=== PATIENT | male | born 1960 | race Caucasian/White ===

== ENCOUNTER 2022-08-05 02:57 | Inpatient (IN) | payer OTHER ==
[~2022-08-05] VITALS: Ht 162.6 cm; Wt 93.2 kg
[2022-08-05 05:24] VITALS: BP 114/80
[2022-08-05] MEDS ORDERED: MOTRIN IB200 MG PO (05:33)
--- NOTE | 2022-08-05 06:57 | NUR ---
SHIFT SUMMARY PATIENT ARRIVED TO PCU 08 VIA EMS TRANSPORT AT 0500. SLIDE TRANSFER COMPLETED. PATIENT ALERT AND ORIENTED X4. HAD NO COMPLAINTS OF PAIN OR SHORTNESS OF BREATH. SATING 99% ON ROOM AIR. PATIENT IN AFLUTTER IN 90'S TO 100'S. PATIENT ARRIVED ON CARDIZEM DRIP AT 5, IT WAS DISCONTINUED UPON ADMIT. WOUNDS NOTED ON BOTH LEGS AND L FOOT, PHOTOS ON CHART. 1+ EDEMA NOTED IN BLE. CALL LIGHT WITHIN REACH.
[2022-08-05 07:54] VITALS: BP 108/81
--- NOTE | 2022-08-05 08:37 | NUR ---
LIVER ULTRASOUND AND ECHO COMPLETED.
--- NOTE | 2022-08-05 09:18 | NUR ---
AM NOTE: PATIENT ALERT AND ORIENTED, ANSWERING QUESTIONS APPROPRIATELY. CONFUSED ON PLACE THINKING HE WAS TRANSFERRED TO [facility]. GROSS. CHRONIC N/T TO BLE/FEET. USES 4 WHEEL WALKER AT BASELINE. BEDREST WITH BEDSIDE COMMODE. PATIENT STATES HE WENT INTO THE ER DUE TO BEING "FROZEN COLD". STATES HE WAS WORRIED HE WAS HAVING A STROKE DUE TO WEAKNESS IN HIS RIGHT ARM/HAND. WEAKNESS NOTED IN ROM AND STRENGTH COMPARED TO LEFT ARM/HAND. BILATERAL EXTREMITY MOVEMENT AND STRENGTH IN LOWER EXTREMITIES. COMPLAINS OF ANTERIOR RIGHT SHOULDER PAIN FROM PREVIOUS INJURY. DENIES ALL OTHER PAINS. ON ROOM AIR, LUNGS SOUNDING CLEAR. NO COUGH OR SOB NOTED. EVEN, UNLABORED BREATHS. TELE SHOWING AFLUTTER WITH HR 80-100'S. DENIES CHEST PAIN/PRESSURE/PALPITATIONS. BP STABLE. PPP. EDEMA NOTED IN BLE/FEET AND MILD EDEMA TO BUE. DENIES ABDOMINAL PAIN/NAUSEA. USING URINAL TO VOID. URINE SOWMYA IN COLOR. SCROTUM AND BILATERAL GROINS RED/INFLAMMED AND FOUL SMELLING. PLAN FOR BED BATH THIS AM. NO TEETH PRESENT, DENIES HAVING DENTURES. BOWEL TONES PRESENT. 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 WOUND CONSULT IN PLACE. ECHO AND LIVER ULTRASOUND COMPLETED. EDUCATED SHEAR ASSEMBLER LIGHT AND SAFETY. PATIENT ABLE TO VERBALIZE FALL PREVENTION AND HOW TO USE CALL LIGHT BACK TO THIS RN.
[2022-08-05 11:11] VITALS: BP 108/88
--- NOTE | 2022-08-05 11:12 | NUR ---
SPIRITUAL CARE IN ROOM AT THIS TIME. PATIENT HR UP TO 130'S WHEN TALKING, BACK DOWN TO 90-100'S AT REST. BP STABLE. PATIENT REMINDED AND EDUCATED ON TURNING SELF IN BED AND PRESSURE ULCER PREVENTION.
--- NOTE | 2022-08-05 12:21 | NUR ---
DR. FLORES IN TO SEE PATIENT. THIS RN AT BEDSIDE. PLAN FOR PATIENT TO RECIEVE PO CARDIZEM SHORT ACTING 30 MG X1 NOW. ORDERS IN PLACE. WILL UPDATE DR. FLORES ON HEART RATE POST CARDIZEM ADMINISTRATION.
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
[2022-08-05 15:02] VITALS: BP 117/91
--- NOTE | 2022-08-05 17:07 | NUR ---
PALLIATIVE CARE RN AT BEDSIDE
--- NOTE | 2022-08-05 17:26 | NUR ---
Pt resting in bed upon arrival. Pt A&OX3. Engaged in therapeutic discussion regarding goals of care. Reviewed plan of care and discussed recommendations. Inquired if he is willing for work up if needed for stroke and heart. Pt wathcing television and mutes it. He states he does not have the chance to watch television much. He states dinner should be here soon. Re-directed Pt to conversation regarding plan of care. Pt reports he would be willing for further stroke work up in a couple days after his breathing improves. Pt states he has nothing wrong with his heart but is agreeable with further work up as long as we don't push drugs on him. Asked Pt to elaborate. Pt reports unwilling to take medications including heart medication even if recommended. Attempted to educate Pt on heart condition including current rate. Pt states "watch this" and closes his eyes for five minutes. He reports knowing meditation and helps his heart. Monitor shows no change in rate and remained at 135 bpm. Pt becomes agitated and states "this conversation is over, re-do your resume and I'll consider your services later". Pt appears to have no intention for compliance and is more interested in what's on television. Spoke with Dr Kemp and discussed case. Palliative Care will remain available
--- NOTE | 2022-08-05 18:08 | NUR ---
SHIFT SUMMARY: NO ACUTE CHANGES. SEE PREVIOUS NOTES. PATIENT RESTING IN BED, WATCHING TV. SEE PREVIOUS NOTE FROM PALLIATIVE CARE RN. PATIENT HR 90-130'S DEPENDING ON ACVITIY. REFUSING TO WORK WITH PT, REFUSING TO GET UP TO BSC WITH THIS RN FOR BOWEL MOVEMENTS AND USING BED RAPP INSTEAD. BM X1 THIS SHIFT. BP REMAINS STABLE. CONTINUES TO DENY ANY CARDIAC SYMPTOMS. COMPLAINS X1 THIS SHIFT WITH BLE PAIN/TIGHTNESS AND REQUESTED TYLENOL. ELEVATING LEGS IN BED. PLAN FOR ALTERATIONS EXPERT TO SEE PATIENT 08/06, NOT AVAILABLE THIS SHIFT. WOUNDS CLEANSED AND OPEN TO AIR. REMAINS ON ROOM AIR. CALL LIGHT IN REACH, AND ABLE TO MAKE NEEDS KNOWN. ECHO RESULTS STILL PENDING.
[2022-08-05 20:01] VITALS: BP 121/81
--- NOTE | 2022-08-05 22:28 | NUR ---
PHYSICIAN [facility] CONTACTED IMPLEMENTATION SERVICES ANALYST RESIDENT DR SANCHEZ TO NOTIFY HER THAT THE PATIENT'S HEART RATE IS IN THE 130'S AND HE IS SYMPTOMATIC WITH SOME SHORTNESS OF BREATH. THAT PATIENT IS REQUESTING LASIX BECAUSE HE FEELS THAT HE IS FLUID OVERLOADED, AND THAT HE HAD BEEN REFUSING ANY CARDIAC MEDICATIONS TODAY BECAUSE HE DOESN'T THINK ANYTHING IS WRONG WITH HIS HEART AND THAT HIS PROBLEM IS TOO MUCH FLUID AROUND HIS HEART. HOSPITALIST DR. ELKINS ON PHONE CALL WELL AND WILL BE ENTERING ORDERS.
[2022-08-05 22:44] VITALS: BP 128/104
[2022-08-05 23:28] LABS: Bun/Creatinine Ratio 16.1 (12.0-20.0); Calcium, Blood 8.4 mg/dL (8.5-10.1); Creatinine, Blood 1.12 mg/dL (0.60-1.20)
[2022-08-06] VITALS (7 sets, daily range): BP systolic 92–120; BP diastolic 75–104
[2022-08-06 04:19] LABS: BASOPHILS ABSOLUTE AUTO 0.07 K/mm3 (0.00-0.23); BASOPHILS PERCENT AUTO 1 % (0-2); EOSINOPHILS ABSOLUTE AUTO 0.07 K/mm3 (0.00-0.68); EOSINOPHILS PERCENT AUTO 1 % (0-6); Hematocrit 35.8 % (37.0-53.0); Hemoglobin 10.8 g/dL (13.5-17.5); IMMATURE GRAN ABSOLUTE AUTO 0.04 K/mm3 (0.00-0.10); IMMATURE GRAN PERCENT AUTO 1 % (0-1); LYMPHOCYTES ABSOLUTE AUTO 0.87 K/mm3 (0.84-5.20); LYMPHOCYTES PERCENT AUTO 10 % (21-46); MONOCYTES ABSOLUTE AUTO 0.47 K/mm3 (0.16-1.47); MONOCYTES PERCENT AUTO 5 % (4-13); Mean Corpuscular HGB 26.9 pg (26.0-34.0); Mean Corpuscular HGB Conc 30.2 g/dL (31.5-36.5); Mean Corpuscular Volume 89 fL (80-100); Mean Platelet Volume 10.7 fL (9.1-12.4); NEUTROPHILS ABSOLUTE AUTO 7.23 K/mm3 (1.96-9.15); NEUTROPHILS PERCENT AUTO 83 % (41-73); Platelet Count 250 K/mm3 (150-400); RDW Coefficient Variation 16.6 % (11.7-14.2); RDW Standard Deviation 54.5 fL (35.1-46.3); Red Blood Cell Count 4.02 M/mm3 (4.30-5.90); White Blood Cell Count 8.75 K/mm3 (4.00-11.30)
[2022-08-06 04:40] LABS: Bun/Creatinine Ratio 17.1 (12.0-20.0); Calcium, Blood 8.5 mg/dL (8.5-10.1); Creatinine, Blood 1.29 mg/dL (0.60-1.20); Potassium, Blood 4.3 mmol/L (3.5-5.5)
--- NOTE | 2022-08-06 06:26 | NUR ---
SHIFT SUMMARY PATIENT ALERT AND ORIENTED X4. WAS MEDICATED WITH LASIX, IV LOPRESSOR, AND PO METOPROLOL TARTRATE TO TREAT HEART RATE IN THE 130'S. PATIENT RESPONDED WELL TO TREATMENT AND HAS BEEN RATE CONTROLLED SINCE. PATIENT HAS NOT HAD MUCH URINE OUTPUT, HOWEVER POST VOID BLADDER SCAN SHOWED A LITTLE OVER 100 ML LEFT IN BLADDER. REFUSING TO USE BEDSIDE COMMODE OVERNIGHT, OPTING TO USE THE BEDPAN INSTEAD TO HAVE A BOWEL MOVEMENT. WILL CONTINUE TO MONITOR. CALL LIGHT WITHIN REACH.
--- NOTE | 2022-08-06 10:30 | NUR ---
AM NOTE: PT STATED HE WAS OVER STIMULATED THIS MORNING. AROUND 8:30 OR 9:00 PT STATED TO THIS RN AND MIK CERVANTES THAT HE WAS REFUSING CARE FROM FEMALE NURSES B/C HE WAS OVER STIMULATED. CHARGE NURSE NOTIFIED OF THIS. PT WAS GIVEN SPACE AND RE-APPROACHED AROUND 30MIN TO AN HR LATER AND STATED TO MIK CERVANTES THAT HE WAS OKAY IF CARE WAS PROVIDED BY HER AND I. ALL MEDS GIVEN THIS MORNING. PT PREFERS CURTAIN AND DOOR CLOSED. LUNG SOUNDS CLEAR THROUGHOUT. PT A&OX4. PT TELLING VARIOUS STORIES.NEEDING LOTS OF RE-DIRECTION AND REASSURANCE. OFTEN PT REFUSING CARE AND WORKING WITH CERTAIN STAFF. TELE SHOWING A FLUTTER HR 80'S-130'S. BP STABLE. BLE SWOLLEN. BRUISING SCATTERED THROUGHOUT. RASH ON ABD. SCAB ON LLE, APPLIED NON-STICK BANDAGE BEFORE PUTTING BLUE NON-SKID SOCKS ON. PT LYING IN BED WITH CALL LIGHT WITHIN REACH AND CURTAIN AND DOOR CLOSED.
--- NOTE | 2022-08-06 15:18 | NUR ---
PT TO MRI AT THIS TIME.
--- NOTE | 2022-08-06 16:51 | NUR ---
PT RESTING IN ROOM. CALM AND COOPERATIVE WITH CARE. HASN'T REFUSED CARE SINCE PREVIOUS NOTE THIS MORNING.
--- NOTE | 2022-08-06 17:56 | NUR ---
SHIFT SUMMARY: NO ACUTE CHANGES. SEE PREVIOUS NOTES. VITALS STABLE. A FLUTTER 80'S-130'S. PT IN A PLEASANT, TALKATIVE MOOD. EATING DINNER AND ENJOYING CONVERSATION WITH NURSE MIK CERVANTES AND MYSELF. PT DENIES CHEST PAIN/PRESSURE/SOB. PT DENIES PAIN & NAUSEA. CALL LIGHT WITHIN REACH.
--- NOTE | 2022-08-06 20:38 | NUR ---
ASSUMPTION OF CARE THIS RN ASSUMED CARE OF PATIENT AT 1900. REPORT TAKEN FROM MIK GUERRA. PATIENT IS CALM AND COOPERATIVE WITH CARE. AFLUTTER ON MONITOR WITH HR 100-120 AT THIS TIME. PO LOPRESSOR GIVEN PER EMAR. BP STABLE. AFEBRILE. ON RA WITH SPO2 >92%. ABLE TO REPOSITION SELF IN BED. CALLING APPROPRIATELY. ALERT AND ORIENTED FULLY BUT OCCASIONALLY STARTS CONVERSATIONS ABOUT RANDOM TOPICS THAT ARE NOT APPROPRIATE FOR CURRENT CONVERSATION AND APPEARS LABILE WITH MOOD AT TIMES. BED IN LOWEST POSITION AND CALL LIGHT WITHIN REACH.
[2022-08-07 00:12] VITALS: BP 108/94
[2022-08-07 03:25] VITALS: BP 106/82
--- NOTE | 2022-08-07 05:04 | NUR ---
SHIFT SUMMARY NO ACUTE CHANGES OVERNIGHT. PATIENT CONTINUES TO BE IN AFLUTTER WITH HR 100-120'S. DENIES CHEST PAIN/PRESSURE OR SOB. BP STABLE. AFEBRILE. SPO2 >92% ON RA. PATIENT IS ALERT AND ORIENTED FULLY. CONTINUES TO HAVE TANGENTIAL SPEECH BUT HAS BEEN COOPERATIVE WITH CARE DURING THIS SHIFT. PATIENT REPOSITIONING SELF IN BED INDEPENDENTLY WITH MINIMAL ASSISTANCE FROM STAFF. USING URINAL INDEPENDENTLY. CALLING APPROPRIATELY. BED IN LOWEST POSITION AND CALL LIGHT WITHIN REACH. THIS RN WILL CONTINUE TO MONITOR UNTIL SHIFT CHANGE AT 0700.
[2022-08-07 10:25] LABS: BASOPHILS ABSOLUTE AUTO 0.11 K/mm3 (0.00-0.23); BASOPHILS PERCENT AUTO 1 % (0-2); EOSINOPHILS ABSOLUTE AUTO 0.32 K/mm3 (0.00-0.68); EOSINOPHILS PERCENT AUTO 4 % (0-6); Hematocrit 34.3 % (37.0-53.0); Hemoglobin 10.3 g/dL (13.5-17.5); IMMATURE GRAN ABSOLUTE AUTO 0.02 K/mm3 (0.00-0.10); IMMATURE GRAN PERCENT AUTO 0 % (0-1); LYMPHOCYTES ABSOLUTE AUTO 1.55 K/mm3 (0.84-5.20); LYMPHOCYTES PERCENT AUTO 19 % (21-46); MONOCYTES ABSOLUTE AUTO 0.67 K/mm3 (0.16-1.47); MONOCYTES PERCENT AUTO 8 % (4-13); Mean Corpuscular HGB 26.4 pg (26.0-34.0); Mean Corpuscular Volume 88 fL (80-100); Mean Platelet Volume 10.3 fL (9.1-12.4); NEUTROPHILS ABSOLUTE AUTO 5.42 K/mm3 (1.96-9.15); NEUTROPHILS PERCENT AUTO 67 % (41-73); Platelet Count 223 K/mm3 (150-400); RDW Coefficient Variation 16.7 % (11.7-14.2); RDW Standard Deviation 53.3 fL (35.1-46.3); White Blood Cell Count 8.09 K/mm3 (4.00-11.30)
[2022-08-07 10:39] VITALS: BP 115/93
[2022-08-07 10:59] LABS: Bun/Creatinine Ratio 17.3 (12.0-20.0); Calcium, Blood 8.7 mg/dL (8.5-10.1); Creatinine, Blood 1.68 mg/dL (0.60-1.20); Potassium, Blood 4.1 mmol/L (3.5-5.5)
[2022-08-07 15:13] VITALS: BP 123/78
[2022-08-07] MEDS ORDERED: MASOPHEN325 M4 PO (16:25)
[2022-08-07] MEDS ORDERED: FURO40 PO (16:26)
[2022-08-07] MEDS ORDERED: METO50ER PO (16:27)
[2022-08-07] MEDS ORDERED: SPIR25 PO (16:28)
--- NOTE | 2022-08-07 16:28 | NUR ---
SHIFT SUMMARY ALERT AND ORIENTED. SBA WITH WALKER TO BATHROOM. LABILE MOOD AND CAN BE UNCOOPERATIVE AT TIMES AND REFUSE CARE. WORKED WITH PT/OT. AFLUTTER IN 120S THROUGHOUT DAY. METOPROLOL DOSE DUE AT [address] YBARRA. TOLERATING REGULAR DIET AND LIQUIDS. VOIDING WELL. BM THIS SHIFT. PLAN TO DISCHARGE TOMORROW 08/08/22 TO [facility] TO OBTAIN MEDICATIONS [facility]. MEDICAL TRANSPORT WILL BE ARRANGED. REPORT GIVEN TO CHARLIE DIETZ.
--- NOTE | 2022-08-07 18:39 | NUR ---
SHIFT SUMMARY THIS RN ASSUMED CARE @ APPROX 1615. PT A/O X4. APPEARED TO BE SLEEPING MAJORITY OF THIS EVENING. RESPIRATIONS EVEN AND UNLABORED. PT REMAINS IN A FLUTTER WITH A RATE IN THE 120'S. PT C/O PAIN IN HIS ANKLES AND WAS MEDICATED PER EMAR. PT PLEASANT AND COOPERATIVE WITH THIS RN WHEN HE IS AWAKE. WILL CONTINUE TO CARE FOR PT AND REPORT TO ONCOMING RN.
[2022-08-07 19:46] VITALS: BP 105/83
--- NOTE | 2022-08-07 21:00 | NUR ---
ASSUMPTION OF CARE THIS RN ASSUMED CARE OF PATIENT AT 1900. REPORT TAKEN FROM J LUIS GUERRA. PATIENT ALERT AND ORIENTED FULLY. NOTED TO HAVE TANGENTIAL SPEECH AND CONVERSES ABOUT TOPICS THAT AREN'T APPROPRIATE FOR CONVERSATION BUT IS CALM AND COOPERATIVE WITH CARE. BP STABLE. AFLUTTER ON MONITOR WITH HR 110-120'S. AFEBRILE. SPO2 >92% ON RA. DENIES CHEST PAIN/PRESSURE AND SOB. ABLE TO REPOSITION SELF IN BED INDEPENDENTLY. CALLING APPROPRIATELY FOR ASSISTANCE. BED IN LOWEST POSITION AND CALL LIGHT WITHIN REACH.
[2022-08-07 23:01] VITALS: BP 108/91
[2022-08-08 04:11] VITALS: BP 107/83
--- NOTE | 2022-08-08 04:45 | NUR ---
SHIFT SUMMARY NO ACUTE CHANGES OVERNIGHT. NEURO UNCHANGED. AFLUTTER ON MONITOR WITH HR 80-120'S; MAINTAINING MORE 110-120'S DURING THIS SHIFT. BP STABLE WITH SBP 100-110. AFEBRILE. SPO2 >92% ON RA. DENIES CHEST PAIN/PRESSURE AND SOB AT REST. AMBULATING WITH WALKER TO BS. PT STATING HE "WANTS TO WORK WITH THERAPY MORE TO GET STRONGER BEFORE GOING BACK TO THE STREETS" TO THIS RN. MOBILITY ENCOURAGED. ABLE TO REPOSITION SELF IN BED INDEPENDENTLY. USING URINAL INDEPENDENTLY. CALLING APPROPRIATELY. PATIENT AWAKE MOST OF THE NIGHT, STATES THAT HE "TAKES CAT NAPS AT NIGHT". PATIENT HAS BEEN COOPERATIVE WITH CARE DURING THIS SHIFT. BED IN LOWEST POSITION AND CALL LIGHT WITHIN REACH. THIS RN WILL CONTINUE TO MONITOR UNTIL SHIFT CHANGE AT 0700.
[2022-08-08 08:45] VITALS: BP 109/88
[2022-08-08 11:58] VITALS: BP 112/88
--- NOTE | 2022-08-08 14:58 | NUR ---
DISCHARGE NOTE: Pt was given written discharge instructions. IV was discontinued, cath was intact. Pt was assisted with getting dressed. Left via w/c with RN, all personal belongings were given to patient. Stable at time of discharge. [facility] and waited there with staff member for taxi ride arrainged through [place]. Taxi arrived at 1445 [facility] [address] [facility] then [place]. Stable at discharge.
== END 2022-08-08 13:30 | disposition home or self-care (01) | DRG 308 ==
LOC: PCU 02:57
PROVIDERS: Internal Medicine; ADMIT Internal Medicine
DX: I48.92 Unspecified atrial flutter (principal); I50.23 Acute on chronic systolic (congestive) heart failure; I69.351 Hemiplegia and hemiparesis following cerebral infarction affecting right dominant side; J81.1 Chronic pulmonary edema; I48.91 Unspecified atrial fibrillation; F91.9 Conduct disorder, unspecified; F20.9 Schizophrenia, unspecified; E87.6 Hypokalemia; J30.9 Allergic rhinitis, unspecified; F31.9 Bipolar disorder, unspecified; J44.9 Chronic obstructive pulmonary disease, unspecified; F22 Delusional disorders; I11.0 Hypertensive heart disease with heart failure; E66.01 Morbid (severe) obesity due to excess calories; R47.9 Unspecified speech disturbances; B35.6 Tinea cruris; G25.0 Essential tremor; K76.82 Hepatic encephalopathy; I87.8 Other specified disorders of veins; D64.9 Anemia, unspecified; E83.42 Hypomagnesemia; Z86.16 Personal history of COVID-19; I25.2 Old myocardial infarction; Z98.890 Other specified postprocedural states; Z88.8 Allergy status to other drugs, medicaments and biological substances; Z79.899 Other long term (current) drug therapy; Z87.01 Personal history of pneumonia (recurrent); Z86.79 Personal history of other diseases of the circulatory system; Z59.00 Homelessness unspecified
CPT/HCPCS: 36415; 70551; 76705; 80048; 82140; 83735; 83880; 85025; 93306; 94762; 96372; 96374; 96375; 96376; 97110; 97116; 97129; 97161; 97165; 97530; A9270; G0378; J1650; J1940; J2405

== ENCOUNTER 2022-08-13 17:36 | Inpatient (IN) | payer OTHER ==
[~2022-08-13] VITALS: Ht 167.6 cm; Wt 86.9 kg
[~2022-08-13 17:36] MED LIST: FURO40 PO; MASOPHEN325 M4 PO; METO50ER PO; MOTRIN IB200 MG PO; SPIR25 PO
[2022-08-13 18:08] LABS: BASOPHILS ABSOLUTE AUTO 0.08 K/mm3 (0.00-0.23); BASOPHILS PERCENT AUTO 1 % (0-2); EOSINOPHILS PERCENT AUTO 4 % (0-6); IMMATURE GRAN ABSOLUTE AUTO 0.02 K/mm3 (0.00-0.10); IMMATURE GRAN PERCENT AUTO 0 % (0-1); LYMPHOCYTES PERCENT AUTO 17 % (21-46); MONOCYTES ABSOLUTE AUTO 0.69 K/mm3 (0.16-1.47); MONOCYTES PERCENT AUTO 8 % (4-13); Mean Corpuscular HGB 26.6 pg (26.0-34.0); Mean Corpuscular HGB Conc 29.7 g/dL (31.5-36.5); Mean Corpuscular Volume 89 fL (80-100); Mean Platelet Volume 10.8 fL (9.1-12.4); NEUTROPHILS ABSOLUTE AUTO 6.01 K/mm3 (1.96-9.15); NEUTROPHILS PERCENT AUTO 70 % (41-73); NRBC ABSOLUTE 0.02 K/mm3 (0.00-0.02); NRBC Auto 0.2 /100 WBC (0.0-0.2); Platelet Count 254 K/mm3 (150-400); RDW Coefficient Variation 16.4 % (11.7-14.2); RDW Standard Deviation 53.4 fL (35.1-46.3); Red Blood Cell Count 4.14 M/mm3 (4.30-5.90)
[2022-08-13 18:15] LABS: Albumin/Globulin Ratio 0.7 (0.8-1.8); Bilirubin, Total 0.7 mg/dL (0.1-1.0); Calcium, Blood 8.8 mg/dL (8.5-10.1); Creatinine, Blood 1.22 mg/dL (0.60-1.20); Globulin, Blood 4.2 g/dL (2.2-4.0); Magnesium, Blood 2.1 mg/dL (1.6-2.4); Potassium, Blood 4.5 mmol/L (3.5-5.5); Total Protein, Blood 7.2 g/dL (6.4-8.2)
[2022-08-13] MEDS ORDERED: IBUP800 PO (18:16)
[2022-08-13 22:06] VITALS: BP 132/110
--- NOTE | 2022-08-14 00:13 | NUR ---
Contacted resident regarding high HR in ST 120-130's, this has been what patient has been running since coming to hospital. For now orders to just monitor and report any changes.
[2022-08-14 01:13] VITALS: BP 125/100
[2022-08-14 04:57] VITALS: BP 115/92
[2022-08-14 05:20] LABS: Albumin/Globulin Ratio 0.7 (0.8-1.8); Bun/Creatinine Ratio 17.9 (12.0-20.0); Calcium, Blood 8.7 mg/dL (8.5-10.1); Creatinine, Blood 1.34 mg/dL (0.60-1.20); Globulin, Blood 4.1 g/dL (2.2-4.0); Potassium, Blood 4.2 mmol/L (3.5-5.5); Total Protein, Blood 7.1 g/dL (6.4-8.2)
--- NOTE | 2022-08-14 05:41 | NUR ---
Assumed care of pt at 2200 as an ER admit for CHF exac. A/Ox4, talkative, with illogical thoughts and derailment of conversation. Maintains over 95% on RA, LS dim on top and coarse at bases. Nonproductive moist cough. Orthopnea, tachypnea and dyspnea noted. ST on tele 120-130's. Denies CP/pressure, VSS. 3+ pitting edema BL, 2+ BUE, and 1+ abdomen. Very good urine output. Will report to dayshift RN.
[2022-08-14 06:26] LABS: BASOPHILS ABSOLUTE AUTO 0.07 K/mm3 (0.00-0.23); BASOPHILS PERCENT AUTO 1 % (0-2); EOSINOPHILS PERCENT AUTO 3 % (0-6); Hemoglobin 10.6 g/dL (13.5-17.5); IMMATURE GRAN ABSOLUTE AUTO 0.02 K/mm3 (0.00-0.10); IMMATURE GRAN PERCENT AUTO 0 % (0-1); LYMPHOCYTES ABSOLUTE AUTO 1.43 K/mm3 (0.84-5.20); LYMPHOCYTES PERCENT AUTO 19 % (21-46); MONOCYTES ABSOLUTE AUTO 0.53 K/mm3 (0.16-1.47); MONOCYTES PERCENT AUTO 7 % (4-13); Mean Corpuscular HGB Conc 30.3 g/dL (31.5-36.5); Mean Corpuscular Volume 86 fL (80-100); Mean Platelet Volume 10.3 fL (9.1-12.4); NEUTROPHILS ABSOLUTE AUTO 5.46 K/mm3 (1.96-9.15); NEUTROPHILS PERCENT AUTO 71 % (41-73); Platelet Count 254 K/mm3 (150-400); RDW Standard Deviation 49.9 fL (35.1-46.3); Red Blood Cell Count 4.08 M/mm3 (4.30-5.90); White Blood Cell Count 7.71 K/mm3 (4.00-11.30)
[2022-08-14 07:31] VITALS: BP 133/110
--- NOTE | 2022-08-14 10:04 | NUR ---
CARE ASSUMPTION This RN assumed care at 0700. vital signs stable. spo2>95% on room air. Tele Sinus tach-Aflutter 120-130s. Patient is alert and oriented x4. Patient has delusional thoughts, patient stated "i am rebecca the archangel" when this RN asked how he got the bruises on his arms, and that he "protects himself". When this RN asked who he was protecting himself from patient answer was a vague response and then would start talking about something different. Patient is a one person stand by assist. patient uses call light appropriately. Patient is able to make needs known and perform ADL's. Patinet reports no shortness of breath. Lung sounds upper lobes bilaterally are clear and lower lobes bilaterally are dim. patient reports no chest pain/pressure. patient has +3 edema in lower extremites and upper extremities +2. patient has no issues voiding. abd soft nontender and active. Patient skin has bruisings throughout, scab throughout, and bilateral lower extremities are tight and edematrous. see shift assessment for further detials. MD Butts in to see patient this AM and made medical status with tele. Plan of care is up to date, call light within reach.
[2022-08-14 11:07] VITALS: BP 121/95
[2022-08-14 15:58] VITALS: BP 93/78
--- NOTE | 2022-08-14 16:00 | NUR ---
SHIFT SUMMARY/TRANSFER CARE This RN gave report to medical floor RN at approx 1525. Patient belongings gathered and patient left to medical floor in no distress with all belongings. No acute changes throughout the shift. Neuro remained intact. Plan of care remains up to date.
--- NOTE | 2022-08-14 16:39 | NUR ---
PCU TRANSFER Patient AOx4, pleasant and cooperative with cares. Handoff report recieved from Marlena GUERRA. Patient stand pivot from w/c to bed. BLE +2 pitting edema. Vitals stable. Will continue plan of care, awaiting discharge planning when medically stable.
[2022-08-14 19:40] VITALS: BP 99/86
[2022-08-15 05:13] LABS: Mean Corpuscular HGB 25.6 pg (26.0-34.0); Mean Corpuscular HGB Conc 29.4 g/dL (31.5-36.5); Mean Corpuscular Volume 87 fL (80-100); Mean Platelet Volume 10.4 fL (9.1-12.4); Platelet Count 247 K/mm3 (150-400); RDW Coefficient Variation 16.2 % (11.7-14.2); RDW Standard Deviation 51.1 fL (35.1-46.3); Red Blood Cell Count 3.91 M/mm3 (4.30-5.90)
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
[2022-08-15 05:56] LABS: Albumin, Blood 2.7 g/dL (3.4-5.0); Albumin/Globulin Ratio 0.7 (0.8-1.8); Bilirubin, Total 0.7 mg/dL (0.1-1.0); Bun/Creatinine Ratio 25.2 (12.0-20.0); Calcium, Blood 8.2 mg/dL (8.5-10.1); Creatinine, Blood 1.27 mg/dL (0.60-1.20); Globulin, Blood 3.7 g/dL (2.2-4.0); Potassium, Blood 3.7 mmol/L (3.5-5.5); Total Protein, Blood 6.4 g/dL (6.4-8.2)
--- NOTE | 2022-08-15 06:13 | NUR ---
PATIENT ABLE TO ANSWER ORIENTATION QUESTIONS, ALTHOUGH INTERNALLY STIMULATED. AUDITORY HALLUCINATIONS AND FLIGHT OF IDEAS THROUGHOUT THE NIGHT. WAS VERY FRUSTRATED WITH CARE AT TIME, DOES NOT LIKE SMART DEVICES/WATCHES. HYPOTENSIVE BUT OTHERWISE VSS. PATIENT REMAINED IN BED, U/O DOCUMENTED. NO OTHER ISSUES TO REPORT.
[2022-08-15 08:04] VITALS: BP 108/82
[2022-08-15 15:26] VITALS: BP 118/88
--- NOTE | 2022-08-15 16:01 | NUR ---
Pt remains alert throughout shift with delusional verbalization at times. Received phone call from Mettl HR remains 120s. AM Toprol was held due to SBP parameters. TO order from Dr. Butts to give po Toprol now. Pt denies cardiac symptoms. Will continue to monitor.
[2022-08-15 19:23] VITALS: BP 95/71
[2022-08-16] VITALS (7 sets, daily range): BP systolic 88–117; BP diastolic 67–97
[2022-08-16 05:18] LABS: Hematocrit 33.8 % (37.0-53.0); Hemoglobin 9.9 g/dL (13.5-17.5); Mean Corpuscular HGB 25.6 pg (26.0-34.0); Mean Corpuscular HGB Conc 29.3 g/dL (31.5-36.5); Mean Corpuscular Volume 88 fL (80-100); Mean Platelet Volume 10.2 fL (9.1-12.4); Platelet Count 231 K/mm3 (150-400); RDW Coefficient Variation 16.2 % (11.7-14.2); RDW Standard Deviation 51.2 fL (35.1-46.3); Red Blood Cell Count 3.86 M/mm3 (4.30-5.90); White Blood Cell Count 6.22 K/mm3 (4.00-11.30)
[2022-08-16 05:48] LABS: Albumin, Blood 2.7 g/dL (3.4-5.0); Albumin/Globulin Ratio 0.7 (0.8-1.8); Bilirubin, Total 0.6 mg/dL (0.1-1.0); Bun/Creatinine Ratio 27.5 (12.0-20.0); Calcium, Blood 8.1 mg/dL (8.5-10.1); Creatinine, Blood 1.2 mg/dL (0.60-1.20); Globulin, Blood 3.7 g/dL (2.2-4.0); Percent Saturation 5.3 % (20.0-50.0); Potassium, Blood 3.8 mmol/L (3.5-5.5); Total Protein, Blood 6.4 g/dL (6.4-8.2)
--- NOTE | 2022-08-16 06:24 | NUR ---
PATIENT IS ORIENTED X4, SOMEWHAT NOT COOPERATIVE WITH CARE AND WAS VERBALLY ABUSIVE WITH SATFF THIS SHIFT. TOOK TELE OF AND REFUSED CARE FOR 4 HOURS, AND THEN BECAME COMPLIANT ONCE MORE. WAS UPSET OVER DIET AND FLUID RESTRICTIONS AND STATED HE WOULD "SHIT ALL OVER SO HE COULD SEE US ACTUALLY WORK." PATIENT BECAME HYPOTENSIVE THIS MORNING, NO NEW ORDERS FROM PROVIDER. 10 BEAT RUN OF VTACK NOTED FROM TELE, PATIENT WAS ASYMPTOMATIC. NO OTHER ISSUES TO REPORT.
[2022-08-16 12:01] LABS: Stool Occult Blood Guaiac 1 Neg (Neg)
--- NOTE | 2022-08-16 17:12 | NUR ---
SHIFT SUMMARY PT A&OX4/DELUSIONS, CAN BE DIFFICULT/DOES APOLOGIZE, IMPROVED BEHAVIOR IN AFTERNOON. VSS/RA/TELE AFLUTTER 120s. PT AGREED TO TAKE DIG AND LOVENOX IN THE AFTERNOON, AFTER INITIAL DECLINATION THIS AM OF TOPROL/DIG/LOVENOX/ASA. KANDY PO, VOIDING/BM, STAND PIVOT TO BSC, DENIES PAIN. TODAY'S WEIGHT 86.9kg, DOWN FROM ADMIT WEIGHT OF 92.4kg. PT DID WELL WITH STRICT I's & O's ASKED FOR FOOD MORE THAN LIQUIDS. WILL REPORT TO ONCOMING NOC RN.
[2022-08-17 02:50] VITALS: BP 103/84
[2022-08-17 05:23] LABS: Albumin, Blood 2.8 g/dL (3.4-5.0); Anion Gap 2 mmol/L (6-16); Blood Urea Nitrogen 31 mg/dL (8-24); CO2, Blood 27 mmol/L (21-32); Calcium, Blood 8.4 mg/dL (8.5-10.1); Chloride, Blood 112 mmol/L (98-108); Creatinine, Blood 1.07 mg/dL (0.60-1.20); Glomerular Filtration Rate 78 (60-); Glucose, Blood 112 mg/dL (70-99); Magnesium, Blood 2.3 mg/dL (1.6-2.4); Phosphorus, Blood 4.1 mg/dL (2.5-4.9); Potassium, Blood 3.9 mmol/L (3.5-5.5); Sodium, Blood 141 mmol/L (136-145)
--- NOTE | 2022-08-17 05:32 | NUR ---
PATIENT SLEPT WELL THROUGH THE NIGHT, NO BEHAVIORAL ISSUES, COMPLIANT WITH MEDICATIONS AND CARE. TELE RUNNING AFLUTTER IN THE 70'S AFTER HS METOPROLOL. GOOD U/O AND WATER RESTRICTED TO 1500 THROUGHOUT THE NIGHT. NO PICKING AT SCABS NOTED AND BLE AND ABD EDEMA GETTING BETTER. WILL CONT TO MONITOR.
[2022-08-17 08:03] VITALS: BP 90/78
[2022-08-17 14:40] VITALS: BP 95/83
--- NOTE | 2022-08-17 19:18 | NUR ---
SHIFT SUMMARY: NO ACUTE EVENTS. PT PLEASANT AND COOPERATIVE ALL SHIFT. C/O PAIN IN FEET, MEDICATED WITH TYLENOL X 1 WITH SOME RELIEF. NO EVENTS ON TELEMETRY, A FLUTTER 90-110. BLE EDEMA 1+. ON ROOM AIR. USING URINAL INDEPENDENTLY. REFUSED SKIN ASSESSMENT. COMPLIANT WITH LOW SODIUM DIET AND FLUID RESTRICTION. TRANSFERRING TO [facility] WITH SBA.
[2022-08-17 20:23] VITALS: BP 111/91
[2022-08-18 04:48] VITALS: BP 94/70
--- NOTE | 2022-08-18 05:18 | NUR ---
NO ACUTE CHANGED THIS SHIFT. REMIANS OREINTED WITH DELUSIONS AND CALLS TO MAKE NEEDS KNOWN. BLE EDEMA RESOLVING, PATIENT IS NOT PICKING MUCH, AND ALL SCRATCH SANCHEZ SEEM TO HAVE SCABBED OVER. 15OO FLUID RESTRICTION MAINTAINED AND LOW SODIUM SNACK PROVIDED THROUGHOUT THE NIGHT. REFUSED COMPLETE SKIN CHECK, HE WOULD NOT ALLOW US TO CLEAN/CHECK HIS COCCYX OR [place] AREA. TELE A FLUTTER FROM 80'S-105. LUNGS CLEAR. WILL CONT TO MONITOR.
[2022-08-18 08:10] VITALS: BP 105/70
[2022-08-18 15:03] VITALS: BP 124/98
[2022-08-18 19:11] VITALS: BP 92/74
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
[2022-08-19 04:49] VITALS: BP 90/61
--- NOTE | 2022-08-19 06:11 | NUR ---
SHIFT SUMMARY NO AVUTE CHANGES NOTED, PT REMAINS A&O X2 TO 3, OCCASIONAL DELUSIONS/AGGRESSIVE COMMENTS NOTED, PT IS ON RA, VSS, TOLERATING PO INTAKE, VOIDING WNL, CALLS FOR ASSISTANCE PRN, CALL LIGHT IN REEACH, AWAKE WATCHING TV AT THIS TIME, WCTM & REPORT TO DAY RN
[2022-08-19 06:25] LABS: Albumin, Blood 3.1 g/dL (3.4-5.0); Anion Gap 2 mmol/L (6-16); Blood Urea Nitrogen 35 mg/dL (8-24); Bun/Creatinine Ratio 32.4 (12.0-20.0); CO2, Blood 26 mmol/L (21-32); Calcium, Blood 8.7 mg/dL (8.5-10.1); Chloride, Blood 109 mmol/L (98-108); Creatinine, Blood 1.08 mg/dL (0.60-1.20); Glomerular Filtration Rate 77 (60-); Glucose, Blood 119 mg/dL (70-99); Magnesium, Blood 2.5 mg/dL (1.6-2.4); Phosphorus, Blood 4.3 mg/dL (2.5-4.9); Potassium, Blood 4.7 mmol/L (3.5-5.5); Sodium, Blood 137 mmol/L (136-145)
[2022-08-19 08:14] VITALS: BP 94/80
[2022-08-19] MEDS ORDERED: FERSU300 PO (12:17)
[2022-08-19] MEDS ORDERED: JARDIANCE25 MG PO (12:17)
[2022-08-19] MEDS ORDERED: DIGOX250 MCG PO (12:17)
[2022-08-19] MEDS ORDERED: Lisinopril2.5 MG PO (12:18)
[2022-08-19] MEDS ORDERED: Seroquel Xr50 MG PO (12:18)
[2022-08-19] MEDS ORDERED: POTCHL20ER PO (12:18)
--- NOTE | 2022-08-19 20:11 | NUR ---
DISHCARGE SUMMARY [facility]. NO PROBLEMS NOTED THIS SHIFT. D/C PAPERWORK WAS REVIEWED WITH THE PTN, AND [facility]CROPROBE OPERATOR HIS MEDICATIONS.
== END 2022-08-19 15:07 | disposition home or self-care (01) | DRG 291 ==
LOC: ER 17:36 → PCU 21:18 → MEDS 21:18 → PCU 22:01 → MEDS 08-14 15:43 → ENPENDDIS 08-19 10:43 → MEDS 08-19 15:07
PROVIDERS: Internal Medicine; Student in an Organized Health Care Education/Training Program; ADMIT Student in an Organized Health Care Education/Training Program
DX: I13.0 Hypertensive heart and chronic kidney disease with heart failure and stage 1 through stage 4 chronic kidney disease, or unspecified chronic kidney disease (principal); I50.23 Acute on chronic systolic (congestive) heart failure; I48.20 Chronic atrial fibrillation, unspecified; I48.92 Unspecified atrial flutter; N17.9 Acute kidney failure, unspecified; F31.9 Bipolar disorder, unspecified; J44.9 Chronic obstructive pulmonary disease, unspecified; F22 Delusional disorders; E66.01 Morbid (severe) obesity due to excess calories; R47.9 Unspecified speech disturbances; G25.0 Essential tremor; B35.6 Tinea cruris; D63.1 Anemia in chronic kidney disease; N18.9 Chronic kidney disease, unspecified; F25.0 Schizoaffective disorder, bipolar type; Z79.01 Long term (current) use of anticoagulants; Z79.899 Other long term (current) drug therapy; Z59.00 Homelessness unspecified; I25.2 Old myocardial infarction; Z98.890 Other specified postprocedural states; Z91.148 Patient's other noncompliance with medication regimen for other reason; Z88.8 Allergy status to other drugs, medicaments and biological substances; Z68.32 Body mass index [BMI] 32.0-32.9, adult; Z86.79 Personal history of other diseases of the circulatory system
CPT/HCPCS: 36415; 71046; 80053; 80069; 82270; 82728; 83540; 83550; 83735; 83880; 84484; 85025; 85027; 93005; 93010; 94760; 94762; 96374; 96375; 96376; 99285-25; A9270; J1650; J1940

== ENCOUNTER 2022-09-08 18:12 | Inpatient (IN) | payer OTHER ==
[~2022-09-08] VITALS: Ht 167.6 cm; Wt 84.6 kg
[~2022-09-08 18:12] MED LIST changes: +DIGOX250 MCG PO; +FERSU300 PO; +IBUP800 PO; +JARDIANCE25 MG PO; +Lisinopril2.5 MG PO; +POTCHL20ER PO; +Seroquel Xr50 MG PO
[2022-09-08 19:41] LABS: Albumin, Blood 3.2 g/dL (3.4-5.0); Albumin/Globulin Ratio 0.8 (0.8-1.8); BASOPHILS ABSOLUTE AUTO 0.09 K/mm3 (0.00-0.23); BASOPHILS PERCENT AUTO 1 % (0-2); Bilirubin, Total 1.1 mg/dL (0.1-1.0); Bun/Creatinine Ratio 16.5 (12.0-20.0); Calcium, Blood 8.1 mg/dL (8.5-10.1); Creatinine, Blood 1.03 mg/dL (0.60-1.20); EOSINOPHILS ABSOLUTE AUTO 0.05 K/mm3 (0.00-0.68); EOSINOPHILS PERCENT AUTO 0 % (0-6); Globulin, Blood 4.1 g/dL (2.2-4.0); Hematocrit 38.5 % (37.0-53.0); Hemoglobin 11.9 g/dL (13.5-17.5); IMMATURE GRAN ABSOLUTE AUTO 0.12 K/mm3 (0.00-0.10); IMMATURE GRAN PERCENT AUTO 1 % (0-1); LYMPHOCYTES ABSOLUTE AUTO 1.02 K/mm3 (0.84-5.20); LYMPHOCYTES PERCENT AUTO 7 % (21-46); MONOCYTES ABSOLUTE AUTO 0.63 K/mm3 (0.16-1.47); MONOCYTES PERCENT AUTO 4 % (4-13); Mean Corpuscular HGB 26.3 pg (26.0-34.0); Mean Corpuscular HGB Conc 30.9 g/dL (31.5-36.5); Mean Corpuscular Volume 85 fL (80-100); NEUTROPHILS ABSOLUTE AUTO 13.59 K/mm3 (1.96-9.15); NEUTROPHILS PERCENT AUTO 88 % (41-73); NRBC ABSOLUTE 0.02 K/mm3 (0.00-0.02); NRBC Auto 0.1 /100 WBC (0.0-0.2); Potassium, Blood 4.6 mmol/L (3.5-5.5); RDW Coefficient Variation 17.6 % (11.7-14.2); RDW Standard Deviation 54.6 fL (35.1-46.3); Red Blood Cell Count 4.53 M/mm3 (4.30-5.90); Total Protein, Blood 7.3 g/dL (6.4-8.2)
[2022-09-08 20:03] LABS: Digoxin (Lanoxin) 0.09 ug/mL (0.80-2.00)
[2022-09-08 20:04] LABS: Mean Platelet Volume 12.1 fL (9.1-12.4); Platelet Count 183 K/mm3 (150-400)
[2022-09-08 20:23] LABS: Source, Urine Clean Catch
[2022-09-08 20:31] LABS: Appearance, Urine Clear (Clear); Bilirubin, Urine Neg (Neg); Blood, Urine 1+ (Neg); Color, Urine Yellow (P-Yellow); Glucose Qualitative, Urine Neg (Neg); Ketones, Urine Neg (Neg); Leukocyte Esterase, Urine Neg (Neg); Nitrite, Urine Neg (Neg); Protein, Urine 3+ (Neg); Specific Gravity, Urine 1.025 (1.003-1.022); Urobilinogen, Urine 1+ (Normal)
[2022-09-08 20:39] LABS: Amorphous Light (0-Heavy); Bacteria Few /hpf; Mucus Light (0-Heavy); Red Blood Cells, Urine 0-2 /hpf (0-2); Squamous Epithelial Cells Rare /hpf (Few); White Blood Cells, Urine 0-2 /hpf (0-5)
[2022-09-08 21:47] LABS: U Amphetamine Screen Not Detected; U Barbituate Screen Not Detected; U Benzodiazapine Screen Not Detected; U Buprenorphine Screen Not Detected; U Cannabinoids Screen Not Detected; U Cocaine Screen Not Detected; U Methadone Screen Not Detected; U Methamphetamine Screen Not Detected; U Opiates Screen Not Detected; U Oxycodone Screen Not Detected; U Phencyclidine Screen Not Detected; U Propoxyphene Screen Not Detected
[2022-09-08 22:18] VITALS: BP 109/82
[2022-09-08 23:23] VITALS: BP 113/90
--- NOTE | 2022-09-08 23:36 | NUR ---
TRANSFER NOTE THIS RN RECEIVED REPORT FROM NATHANAEL GUERRA IN THE ED VIA PHONE. PATIENT TRANSFERRED TO U 11 AT 2210. PATIENT SLID FROM RNEY TO BED WITH STAFF ASSISTANCE. PATIENT DENIES CHEST PAIN/PRESSURE AND SOB. REPORTS WEAKNESS. DENIES CARDIAC PROBLEMS AND HISTORY DESPITE DOCUMENTED HISTORY. BP STABLE. AFLUTTER NOTED ON MONITOR WITH HR 120-130'S AT TIME OF ADMISSION. MEDICATED PER EMAR. AFEBRILE. SPO2 >92% ON RA. PATIENT ALERT AND ORIENTED FULLY. ABLE TO MAKE NEEDS KNOWN. APPEARS TO HAVE DELUSIONS ABOUT "RUNNING FOR GOVERNOR" AND STATES HE CAN "SLOW HIS HEART RATE WITH MEDITATION". PATIENT STATES HE IS ONLY TAKING 3 OF THE MEDICATIONS ON HIS MEDICATION LIST; SEE MED REC. PATIENT EDUCATED ON CHF, FLUID OVERLOAD, AFIB, AND THE IMPORTANCE OF ALL MEDICATIONS THAT HE SHOULD BE TAKING. PATIENT NOTED TO BE UNINTERESTED IN EDUCATION. PATIENT CALM AND COOPERATIVE WITH CARE/STAFF. USING URINAL INDEPENDENTLY. BED IN LOWEST POSITION AND CALL LIGHT WITHIN REACH.
[2022-09-09 04:02] VITALS: BP 107/78
--- NOTE | 2022-09-09 04:45 | NUR ---
SHIFT SUMMARY NO ACUTE CHANGES OVERNIGHT. PATIENT GIVEN 2.5 MG LOPRESSOR PUSH PER EMAR FOR HR EARLIER IN THE SHIFT. DIG LOADED. SINCE ADMINISTRATION OF LOPRESSOR, AFIB/AFLUTTER NOTED WITH RATE OF 80-90'S. PATIENT DENIES CHEST PAIN/PRESSURE AND SOB. LUNGS CLEAR T/O, WITH SPO2 >92% ON RA. BP STABLE. ALERT AND ORIENTED FULLY. ABLE TO MAKE NEEDS KNOWN. NOTED TO CONTINUE TO HAVE DELUSIONS ABOUT CURRENT ILLNESS AND REASON FOR SYMPTOMS. THIS RN CONTINUES TO ATTEMPT TO EDUCATE PATIENT ON CHF, AFIB, AND MEDICATIONS. PATIENT DENIES NEED AND IS UNINTERESTED. COOPERATIVE WITH CARE. USING URINAL INDEPENDENTLY. BED IN LOWEST POSITION AND CALL LIGHT WITHIN REACH. THIS RN WILL CONTINUE TO MONITOR UNTIL SHFIT CHANGE AT 0700.
[2022-09-09 05:27] LABS: BASOPHILS ABSOLUTE AUTO 0.09 K/mm3 (0.00-0.23); BASOPHILS PERCENT AUTO 1 % (0-2); EOSINOPHILS ABSOLUTE AUTO 0.02 K/mm3 (0.00-0.68); EOSINOPHILS PERCENT AUTO 0 % (0-6); Hematocrit 36.3 % (37.0-53.0); Hemoglobin 11.5 g/dL (13.5-17.5); IMMATURE GRAN ABSOLUTE AUTO 0.12 K/mm3 (0.00-0.10); IMMATURE GRAN PERCENT AUTO 1 % (0-1); LYMPHOCYTES ABSOLUTE AUTO 1.18 K/mm3 (0.84-5.20); LYMPHOCYTES PERCENT AUTO 11 % (21-46); MONOCYTES ABSOLUTE AUTO 0.54 K/mm3 (0.16-1.47); MONOCYTES PERCENT AUTO 5 % (4-13); Mean Corpuscular HGB Conc 31.7 g/dL (31.5-36.5); Mean Corpuscular Volume 82 fL (80-100); Mean Platelet Volume 11.4 fL (9.1-12.4); NEUTROPHILS ABSOLUTE AUTO 8.68 K/mm3 (1.96-9.15); NEUTROPHILS PERCENT AUTO 82 % (41-73); Platelet Count 154 K/mm3 (150-400); RDW Coefficient Variation 17.3 % (11.7-14.2); RDW Standard Deviation 51.6 fL (35.1-46.3); Red Blood Cell Count 4.43 M/mm3 (4.30-5.90); White Blood Cell Count 10.63 K/mm3 (4.00-11.30)
[2022-09-09 05:37] LABS: Albumin, Blood 2.8 g/dL (3.4-5.0); Albumin/Globulin Ratio 0.7 (0.8-1.8); Bilirubin, Total 0.8 mg/dL (0.1-1.0); Calcium, Blood 7.8 mg/dL (8.5-10.1); Creatinine, Blood 1.07 mg/dL (0.60-1.20); Globulin, Blood 3.9 g/dL (2.2-4.0); Potassium, Blood 3.4 mmol/L (3.5-5.5); Total Protein, Blood 6.7 g/dL (6.4-8.2)
[2022-09-09 07:28] VITALS: BP 98/78
--- NOTE | 2022-09-09 07:41 | NUR ---
AM NOTE PT ALERT, ORIENTED X4; CALM AND COOPERATIVE WITH CARE. PT RESTING IN BED, MOVES IND IN BED. PT DENIES PAIN, CHEST PAIN/PRESSURE, SOB, NAUSEA, DIZZINESS AND NUMB/TINGLING. PT TELE AFLUTTER 90-110'S, BP SOFT. SPO2 >90% ON RA, BREATHING EVEN AND UNLABORED. ABD SOFT NONTENDER, NORMOACTIVE BT. EDEMA NOTED TO BLE 2+, NONPITTING EDEMA NOTED TO BUE. OTHER VSS. NO OTHER ACUTE CHANGES NOTED. WILL CONTINUE TO MONITOR.
[2022-09-09 11:19] VITALS: BP 104/69
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
[2022-09-09 16:04] VITALS: BP 111/80
--- NOTE | 2022-09-09 18:35 | NUR ---
Shift Summary Pt heart rate this afternoon and this evening sustaining in 130's, medicated X2 with lopressor PRN. Bp stable. Pt irritable with staff this evening. Other vss. No other acute changes noted.
[2022-09-09 19:31] VITALS: BP 111/85
[2022-09-09 23:21] VITALS: BP 93/68
[2022-09-10 04:26] VITALS: BP 101/77
--- NOTE | 2022-09-10 05:03 | NUR ---
SHIFT SUMMARY THIS RN ASSUMED CARE OF PATIENT AT 1900. PATIENT ALERT AND ORIENTED FULLY. ABLE TO MAKE NEEDS KNOWN. CALM AND COOPERATIVE WITH CARE. PATIENT CONTINUES TO HAVE DELUSIONS ABOUT LIFE AND CURRENT ILLNESS; WHICH IS HIS BASELINE. BP STABLE. PATIENT CONVERTED TO SR/ST WITH NOTED PAC'S/PVC'S HR 90-100'S. PATIENT PREVIOUSLY WAS AFIB/AFLUTTER. SPO2 >94% ON RA. AFEBRILE. PATIENT USING URINALS AND REPOSITIONING SELF INDEPENDENTLY IN BED. BED IN LOWEST POSITION AND CALL LIGHT WITHIN REACH. THIS RN WILL CONTINUE TO MONITOR UNTIL SHIFT CHANGE AT 0700.
[2022-09-10 07:49] VITALS: BP 96/81
[2022-09-10 10:21] LABS: BASOPHILS ABSOLUTE AUTO 0.05 K/mm3 (0.00-0.23); BASOPHILS PERCENT AUTO 1 % (0-2); EOSINOPHILS ABSOLUTE AUTO 0.26 K/mm3 (0.00-0.68); EOSINOPHILS PERCENT AUTO 3 % (0-6); Hematocrit 35.1 % (37.0-53.0); Hemoglobin 10.8 g/dL (13.5-17.5); IMMATURE GRAN ABSOLUTE AUTO 0.04 K/mm3 (0.00-0.10); IMMATURE GRAN PERCENT AUTO 1 % (0-1); LYMPHOCYTES ABSOLUTE AUTO 0.98 K/mm3 (0.84-5.20); LYMPHOCYTES PERCENT AUTO 11 % (21-46); MONOCYTES ABSOLUTE AUTO 0.43 K/mm3 (0.16-1.47); MONOCYTES PERCENT AUTO 5 % (4-13); Mean Corpuscular HGB 25.7 pg (26.0-34.0); Mean Corpuscular HGB Conc 30.8 g/dL (31.5-36.5); Mean Corpuscular Volume 83 fL (80-100); Mean Platelet Volume 11.3 fL (9.1-12.4); NEUTROPHILS ABSOLUTE AUTO 6.92 K/mm3 (1.96-9.15); NEUTROPHILS PERCENT AUTO 80 % (41-73); Platelet Count 166 K/mm3 (150-400); RDW Coefficient Variation 17.4 % (11.7-14.2); Red Blood Cell Count 4.21 M/mm3 (4.30-5.90); White Blood Cell Count 8.68 K/mm3 (4.00-11.30)
[2022-09-10 11:08] LABS: Anion Gap 8 mmol/L (6-16); Blood Urea Nitrogen 21 mg/dL (8-24); Bun/Creatinine Ratio 21.2 (12.0-20.0); CO2, Blood 24 mmol/L (21-32); Chloride, Blood 107 mmol/L (98-108); Creatinine, Blood 0.99 mg/dL (0.60-1.20); Digoxin (Lanoxin) 1.28 ug/mL (0.80-2.00); Glomerular Filtration Rate 86 (60-); Glucose, Blood 128 mg/dL (70-99); Magnesium, Blood 1.9 mg/dL (1.6-2.4); Potassium, Blood 3.4 mmol/L (3.5-5.5); Sodium, Blood 139 mmol/L (136-145)
--- NOTE | 2022-09-10 12:00 | NUR ---
TRANSFER NOTE PT IS A&O X4. VSS. SPO2 >92% ON RA. NORMAL SINUS RHYTHM, HR 90'S. PT WITH NO COMPLAINTS AT THIS TIME. PT STATUS CHANGED TO MEDICAL WITH NO TELE. REPORT GIVEN TO ACCEPTING RN. PT TRANSFERED UP TO MEDICAL FLOOR BY BED @ APPROX 1200.
[2022-09-10 15:58] VITALS: BP 104/80
--- NOTE | 2022-09-10 16:34 | NUR ---
PATIENT IS ALERT AND ORIENTED AND COOPERATIVE WITH CARE. C/O PAIN IN HIS LLE AND MEDICATED PER EMAR. PATIENT IS 1PA WITH FWW AND GAITBELT. HE AMBULATED TO THE BATHROOM THIS AFTERNOON. LLE IS RED AND WARM TO THE TOUCH, REDNESS IS OUTLINED IN PEN. EDEMA BLE. NO NEW CONCERNS. WILL CONTINUE TO MONITOR
[2022-09-10 19:50] VITALS: BP 113/85
[2022-09-11 05:10] VITALS: BP 128/73
[2022-09-11 07:23] VITALS: BP 101/81
[2022-09-11 09:16] LABS: BASOPHILS ABSOLUTE AUTO 0.05 K/mm3 (0.00-0.23); BASOPHILS PERCENT AUTO 1 % (0-2); EOSINOPHILS ABSOLUTE AUTO 0.29 K/mm3 (0.00-0.68); EOSINOPHILS PERCENT AUTO 4 % (0-6); Hematocrit 35.8 % (37.0-53.0); Hemoglobin 11.1 g/dL (13.5-17.5); IMMATURE GRAN ABSOLUTE AUTO 0.02 K/mm3 (0.00-0.10); IMMATURE GRAN PERCENT AUTO 0 % (0-1); LYMPHOCYTES ABSOLUTE AUTO 1.25 K/mm3 (0.84-5.20); LYMPHOCYTES PERCENT AUTO 16 % (21-46); MONOCYTES ABSOLUTE AUTO 0.46 K/mm3 (0.16-1.47); MONOCYTES PERCENT AUTO 6 % (4-13); Mean Corpuscular HGB 25.8 pg (26.0-34.0); Mean Corpuscular Volume 83 fL (80-100); Mean Platelet Volume 10.7 fL (9.1-12.4); NEUTROPHILS ABSOLUTE AUTO 5.68 K/mm3 (1.96-9.15); NEUTROPHILS PERCENT AUTO 73 % (41-73); Platelet Count 159 K/mm3 (150-400); RDW Coefficient Variation 17.1 % (11.7-14.2); RDW Standard Deviation 52.4 fL (35.1-46.3); White Blood Cell Count 7.75 K/mm3 (4.00-11.30)
[2022-09-11 09:37] LABS: Bun/Creatinine Ratio 24.3 (12.0-20.0); Calcium, Blood 8.3 mg/dL (8.5-10.1); Creatinine, Blood 0.91 mg/dL (0.60-1.20); Potassium, Blood 3.6 mmol/L (3.5-5.5)
[2022-09-11] MEDS ORDERED: CEPH500 PO (12:44)
--- NOTE | 2022-09-11 15:01 | NUR ---
DISCHARGE SUMMARY PATIENT WITH MINIMAL PAIN ISSUES TODAY. STATES NO NEED FOR PAIN MEDS. REDNESS DECREASING ON LEFT LOWER EXTREMETY. IV REMOVED, SIGNATURES OBTAINED, PATIENT EDUCATION PROVIDED. PATIENT LEFT FLOOR AT 1455 WITH SHANE PIZANO IN WHEELCHAIR TO [facility] ENTRANCE RECIVED BY TAXI FOR DISCHARGE TO [facility]. 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 PATIENT VERBALIZES UNDERSTANDING.
== END 2022-09-11 14:58 | disposition home health service (06) | DRG 872 ==
LOC: ER 18:12 → PCU 21:57 → MEDS 21:57 → PCU 22:08 → MEDS 09-10 12:01 → ENPENDDIS 09-11 12:43 → MEDS 09-11 14:58
PROVIDERS: Emergency Medicine; Internal Medicine; Nurse Practitioner Acute Care; ADMIT Internal Medicine
DX: A41.9 Sepsis, unspecified organism (principal); L03.116 Cellulitis of left lower limb; I48.20 Chronic atrial fibrillation, unspecified; I50.22 Chronic systolic (congestive) heart failure; I11.0 Hypertensive heart disease with heart failure; J44.9 Chronic obstructive pulmonary disease, unspecified; I25.2 Old myocardial infarction; F25.0 Schizoaffective disorder, bipolar type; D63.8 Anemia in other chronic diseases classified elsewhere; E87.6 Hypokalemia; G25.0 Essential tremor; Z91.148 Patient's other noncompliance with medication regimen for other reason; Z59.01 Sheltered homelessness; Z89.412 Acquired absence of left great toe; Z98.890 Other specified postprocedural states; Z89.422 Acquired absence of other left toe(s); Z88.8 Allergy status to other drugs, medicaments and biological substances; Z79.899 Other long term (current) drug therapy
CPT/HCPCS: 36415; 71045; 73620; 80048; 80053; 80162; 81001; 83605; 83735; 83880; 84145; 84484; 85025; 86140; 87040; 93005; 93010; 96365; 99285-25; A9270; J0690; J0696; J1160; J1650; J1940

== ENCOUNTER 2022-09-22 15:16 | Emergency (ER) | payer OTHER ==
[~2022-09-22] VITALS: Ht 167.6 cm; Wt 90.7 kg
[~2022-09-22 15:16] MED LIST changes: +CEPH500 PO
[2022-09-22 15:47] LABS: BASOPHILS ABSOLUTE AUTO 0.08 K/mm3 (0.00-0.23); BASOPHILS PERCENT AUTO 1 % (0-2); EOSINOPHILS ABSOLUTE AUTO 0.25 K/mm3 (0.00-0.68); EOSINOPHILS PERCENT AUTO 3 % (0-6); Hematocrit 36.1 % (37.0-53.0); IMMATURE GRAN ABSOLUTE AUTO 0.02 K/mm3 (0.00-0.10); IMMATURE GRAN PERCENT AUTO 0 % (0-1); LYMPHOCYTES ABSOLUTE AUTO 2.07 K/mm3 (0.84-5.20); LYMPHOCYTES PERCENT AUTO 28 % (21-46); MONOCYTES ABSOLUTE AUTO 0.46 K/mm3 (0.16-1.47); MONOCYTES PERCENT AUTO 6 % (4-13); Mean Corpuscular HGB 25.5 pg (26.0-34.0); Mean Corpuscular HGB Conc 30.5 g/dL (31.5-36.5); Mean Corpuscular Volume 84 fL (80-100); Mean Platelet Volume 10.5 fL (9.1-12.4); NEUTROPHILS ABSOLUTE AUTO 4.62 K/mm3 (1.96-9.15); NEUTROPHILS PERCENT AUTO 62 % (41-73); Platelet Count 258 K/mm3 (150-400); RDW Coefficient Variation 17.1 % (11.7-14.2); RDW Standard Deviation 51.9 fL (35.1-46.3); Red Blood Cell Count 4.32 M/mm3 (4.30-5.90)
[2022-09-22 16:19] LABS: C-REACTIVE PROTEIN, EXT RANGE 1.09 mg/dL (0.000-0.300)
[2022-09-22 16:21] LABS: Albumin, Blood 3.2 g/dL (3.4-5.0); Albumin/Globulin Ratio 0.7 (0.8-1.8); Bilirubin, Total 0.4 mg/dL (0.1-1.0); Bun/Creatinine Ratio 19.7 (12.0-20.0); Calcium, Blood 9.3 mg/dL (8.5-10.1); Creatinine, Blood 1.17 mg/dL (0.60-1.20); Globulin, Blood 4.4 g/dL (2.2-4.0); Potassium, Blood 4.4 mmol/L (3.5-5.5); Total Protein, Blood 7.6 g/dL (6.4-8.2)
[2022-09-22] MEDS ORDERED: FURO40 PO (19:51)
[2022-09-22] MEDS ORDERED: CEPH500 PO (19:51)
[2022-09-22 20:00] VITALS: BP 120/86
== END 2022-09-22 20:04 | disposition home or self-care (01) ==
LOC: ER 15:16
PROVIDERS: Physician Assistant
DX: L03.116 Cellulitis of left lower limb (principal); I11.0 Hypertensive heart disease with heart failure; I50.9 Heart failure, unspecified; J44.9 Chronic obstructive pulmonary disease, unspecified; I25.2 Old myocardial infarction; Z79.899 Other long term (current) drug therapy; Z88.8 Allergy status to other drugs, medicaments and biological substances
CPT/HCPCS: 80053; 83605; 83880; 85025; 86140; 93971; 99284-25; A9270

== ENCOUNTER 2022-09-23 15:38 | Emergency (ER) | payer OTHER ==
[~2022-09-23] VITALS: Ht 167.6 cm; Wt 79.4 kg
[2022-09-23 16:06] VITALS: BP 113/94
== END 2022-09-23 16:16 | disposition home or self-care (01) ==
LOC: ER 15:38
DX: Z00.01 Encounter for general adult medical examination with abnormal findings (principal); R53.83 Other fatigue; I11.0 Hypertensive heart disease with heart failure; I50.9 Heart failure, unspecified; Z88.8 Allergy status to other drugs, medicaments and biological substances; Z79.899 Other long term (current) drug therapy
CPT/HCPCS: 99282